=== PATIENT | female | born 1945 | race Caucasian/White ===

== ENCOUNTER 2016-08-21 08:38 | Observation (INO) | payer BC ==
[2016-08-17 21:28] LABS: BASOPHILS 0.4 %; BASOPHILS ABSOLUTE 0.03 10/3/uL (0.0-0.16); EOSINOPHILS ABSOLUTE 0.16 10/3/uL (0.0-0.53); HEMATOCRIT 41.2 % (36.0-48.0); HEMOGLOBIN 12.4 g/dL (12.0-16.0); IMMATURE GRANULOCYTES 0.2 %; IMMATURE GRANULOCYTES ABSOLUTE 0.02 10/3/uL (0.0-0.11); LYMPHOCYTES 21.9 %; LYMPHOCYTES ABSOLUTE 1.76 10/3/uL (0.67-4.30); MANUAL DIFF NO %; MEAN CORPUS HGB CONC 30.1 g/dL (32.0-36.0); MEAN CORPUSCULAR HEMOGLOB 24.9 pg (26.0-34.0); MEAN CORPUSCULAR VOLUME 82.9 fL (80-100); MEAN PLATELET VOLUME 10.5 fL (9.2-13.0); MONOCYTES ABSOLUTE 0.56 10/3/uL (0.21-1.20); NEUTROPHILS 68.5 %; PLATELET COUNT 290 10/3/uL (150-400); RBC DISTRIBUTION WIDTH 14.7 % (12.0-16.0); RED CELL COUNT 4.97 10/6/uL (4.0-5.6)
[2016-08-17 21:33] LABS: A/G RATIO 1.3 (0.7-1.9); ALBUMIN 3.4 G/DL (3.5-5.0); ALKALINE PHOSPHATASE 59 U/L (45-117); BUN (BLOOD UREA NITROGEN) 10 MG/DL (6-23); CALCIUM, SERUM 8.8 MG/DL (8.5-10.4); CHLORIDE, SERUM 110 MMOL/L (96-112); CO2 (CARBON DIOXIDE) 28 MMOL/L (24-34); CREATININE 0.91 MG/DL (0.55-1.02); GFR AFRICAN AMERICAN 75 ML/MIN (>=60); GFR NON AFRICAN AMERICAN 65 ML/MIN (>=60); GLOBULIN 2.6 G/DL (2.5-4.1); GLUCOSE, SERUM 78 MG/DL (60-99); POTASSIUM, SERUM 3.9 MMOL/L (3.5-5.3); SGOT(AST) 20 U/L (5-40); SGPT(ALT) 17 U/L (5-65); SODIUM, SERUM 146 MMOL/L (135-148); TOTAL BILIRUBIN 1.1 MG/DL (0-1.2)
--- NOTE | ~2016-08-21 | OP ---
Record Of Operation [facility] [address] [place]. [address] NAME: BLESSING AVERY : 49 STATUS : ADM Bhupinder PAT#: [id number] AGE: 70 ADM/REG DATE : 08/21/16 MR#: [id number] REPORT SERV DATE: 08/22/16 DICTATED BY: GURPREET MERCER DATE: 08/21/16 REPORT STATUS : Draft TRANSCRIBED BY: MODL DATE: 08/21/16 DATE OF PROCEDURE: 08/21/2016 PREOPERATIVE DIAGNOSES: 1. Hiatal hernia. 2. Gastroesophageal reflux disease. POSTOPERATIVE DIAGNOSES: 1. Hiatal hernia. 2. Gastroesophageal reflux disease. PROCEDURE: Laparoscopic hiatal hernia repair with Angel fundoplication, [id number]. ATTENDING: Gurpreet Mercer M.D. CHIEF RESIDENT: Jose Antonio Sullivan MD ANESTHETIC: General with local. IV FLUIDS: Approximately 1500 mL. ESTIMATED BLOOD LOSS: 10 mL. COMPLICATIONS: None. COUNTS: Correct. SPECIMEN: None. DESCRIPTION OF PROCEDURE: The patient was brought to the operating room and placed supine on the operating table. Anesthetic was administered. Endotracheal intubation was achieved. The patient was placed in the modified lithotomy position. The abdomen was prepped and draped in a standard sterile fashion. A time-out was held. An incision was made approximately 10 cm below the left subcostal margin just lateral to the umbilicus, approximately 12 mm transversely. The Optiview trocar was used to engage the fascia inserted until the intraperitoneal space was cannulated. Insufflation was achieved. The scope was changed to a 30-degree scope and inserted. Under visualization, local anesthetic was administered in the following places and the appropriate trocars placed, three 5 mm trocars and one in the left anterior axillary line to the right of the subxiphoid position and another in the right anterior axillary line. A 12 mm trocar was placed in the midclavicular line below the intercostal margin. Next, the stomach was reduced from the chest through the small hiatal hernia defect. The pars flaccida was opened with a Harmonic. This was carried up to a suspected well placed hepatic vessel which was doubly clipped and divided with the Harmonic. The right margy was identified and cleared off with the Harmonic. Dissection was carried up into the mediastinum once the appropriate plane achieved. This was carried anteriorly and to along the left margy as well. Care was taken to avoid injury Record Of Operation [facility] [id number] [place]. [address] NAME: BLESSING AVERY : 49 STATUS : ADM Bhupinder PAT#: [id number] AGE: 70 ADM/REG DATE : 08/21/16 MR#: [id number] REPORT SERV DATE: 08/22/16 DICTATED BY: GURPREET MERCER DATE: 08/21/16 REPORT STATUS : Draft TRANSCRIBED BY: KIMMY DATE: 08/21/16 to the anterior and posterior vagus nerves to provide the dissection. Next, the stomach was retracted down into the right. The lessor sac just left lateral of the greater curve at the level of the short gastrics. The short gastrics were divided with Harmonic and this was carried up to the posterior aspect of the left margy. This dissection continued until connected with the anterior dissection. Next, the plane behind the gastroesophageal junction was achieved and the [place] was used to encircle this with clips. The mediastinum dissection was descended to ensure adequate mobilization of the hernia sac as well as stomach to prevent recurrence. The margy were reapproximated with a suture-assist device using 2-0 Vicryl in a [id number] fashion with two posterior sutures and simple interrupted just posterior to the esophagus and entered the abdomen. Next, the fundus was passed behind the esophagus and the shoeshine maneuver conducted. This was felt to be adequately mobilized and the Angel fundoplication achieved with a suture-assist device. The wrap was appropriately oriented and secured reconstituting the GE junction. The NG tube was withdrawn and the trocar was removed. Hemostasis was achieved prior to this. Pneumoperitoneum was released, and the incision was closed superficially with 4-0 Monocryl in a subcuticular fashion. Sterile bandage applied. The patient was extubated and transferred to the recovery room in stable condition. DICTATED BY: Jose Antonio Sullivan MD ND/KIMMY Gurpreet Mercer M.D. / [id number] CC: Gurpreet Mercer M.D.
[~2016-08-21 08:38] MED LIST: ASABAYER PO; CALCIUM PO; CAT1 PO; CELEXA20 PO; MYSOLINE 50 MG50 MG OR; NEUR300 PO; NEXIUM40 PO; OSTEO BI-FLEX1 EACH PO; PAXIL40 MG PO; PEPCID40 MG PO; PRAVACHOL40 MG PO; PREV15 PO; PROAIR HFA INH; SINGULAIR1 PO
[2016-08-22 06:53] LABS: BUN (BLOOD UREA NITROGEN) 9 MG/DL (6-23); CALCIUM, SERUM 8.6 MG/DL (8.5-10.4); CHLORIDE, SERUM 108 MMOL/L (96-112); CO2 (CARBON DIOXIDE) 29 MMOL/L (24-34); CREATININE 0.91 MG/DL (0.55-1.02); GFR AFRICAN AMERICAN 75 ML/MIN (>=60); GFR NON AFRICAN AMERICAN 65 ML/MIN (>=60); POTASSIUM, SERUM 4.6 MMOL/L (3.5-5.3); SODIUM, SERUM 144 MMOL/L (135-148)
[2016-08-22 06:56] LABS: GLUCOSE, SERUM 104 MG/DL (60-99)
[2016-08-22] MEDS ORDERED: ZOFRAN4 PO (10:45)
[2016-08-22] MEDS ORDERED: PCET PO (10:46)
== END 2016-08-22 13:43 | disposition home or self-care (01) ==
LOC: SDC 08:38 → SDC/OF 13:41 → 5SO 16:29
PROVIDERS: Specialist
PROC: 0BQR4ZZ (ICD-10-PCS; 2016-08-21)
PROC: 0BQS4ZZ (ICD-10-PCS; principal; 2016-08-21 10:15)
DX: K44.9 Diaphragmatic hernia without obstruction or gangrene (principal); K21.9 Gastro-esophageal reflux disease without esophagitis; G47.33 Obstructive sleep apnea (adult) (pediatric); J45.909 Unspecified asthma, uncomplicated; F41.9 Anxiety disorder, unspecified; Z82.49 Family history of ischemic heart disease and other diseases of the circulatory system; Z80.3 Family history of malignant neoplasm of breast; Z88.5 Allergy status to narcotic agent; Z79.899 Other long term (current) drug therapy; Z90.49 Acquired absence of other specified parts of digestive tract; Z79.82 Long term (current) use of aspirin; Z98.890 Other specified postprocedural states
CPT/HCPCS: 36415; 80048; 80053; 85025; 93005; 96372; A9270-GY; G0378; J0690; J2250; J2405; J2710; J3010